=== PATIENT | female | born 1940 | race Caucasian/White ===

== ENCOUNTER 2017-04-27 11:38 | Emergency (ER) | payer MEDICAID, MEDICARE, OTHER ==
[~2017-04-27] VITALS: Ht 154.9 cm; Wt 54.4 kg
[2017-04-27 12:14] VITALS: BP 140/58
--- NOTE | 2017-04-27 12:31 | NUR ---
PATIENT WILL BE PUT IN BED# 7 WHEN AVAILABLE
--- NOTE | 2017-04-27 12:53 | NUR ---
Pt placed in bed 7. Daughter at bedside.
--- NOTE | 2017-04-27 13:03 | NUR ---
77/F bib daughter for evaluation of dizzness since Saturday and a cough since Saturday. Pt denies any syncope or loss of conciousness. AOX4, nigerien speaking. Pt c/o chest tightness with cough only. Pt also c/o shortness of breath. Productive, hacking, moist cough noted. Lungs sounds wheezing/rhonchi all throughout. RR 24, no use of accessory muscles. O2 Sat 94 % on room air. Chest rises and falls symmetrically. Abd soft, non tender, active bowel sounds x 4 quadrants. Denies N/V/D. Denies s/s of UTI. Skin warm and dry, normal in color for ethnicity. Ambulatory with steady gait. VSS at this time. Pt placed in a gown, ekg monitor, pulse oximetry, and blood pressure monitoring. Placed in position of comfort, bed in lowest position.
[2017-04-27] MEDS ORDERED: INSULIN HUMAN REGULAR 100 UNITS/ML 10 ML VIAL IVP ONE ×2 (13:20)
[2017-04-27] MEDS ORDERED: NACL 0.9% 1,000 ML IV SCH (13:27)
[2017-04-27 13:45] LABS: BASOPHILS # (AUTO) 0.2 K/uL (0.00-0.22); BASOPHILS % (AUTO) 1.6 % (0.0-2.0); EOSINOPHILS # (AUTO) 0.1 K/uL (0-0.4); EOSINOPHILS % (AUTO) 0.9 % (0.0-4.0); HEMATOCRIT 37.8 % (36-48); HEMOGLOBIN 12.6 g/dL (12.0-16.0); LYMPHOCYTES # (AUTO) 1.2 K/uL (2.5-16.5); LYMPHOCYTES % (AUTO) 7.7 % (20.5-51.1); MEAN CORPUSCULAR HEMOGLOBIN 30 pg (27-31); MEAN CORPUSCULAR HGB CONC 33 g/dL (33-37); MEAN CORPUSCULAR VOLUME 90 fL (80-94); MONOCYTES # (AUTO) 0.5 K/uL (0.8-1.0); MONOCYTES % (AUTO) 3.4 % (1.7-9.3); NEUTROPHILS # (AUTO) 13.4 K/uL (1.8-7.7); NEUTROPHILS % (AUTO) 86.4 % (42.2-75.2); PLATELET COUNT (AUTO) 128 K/uL (140-450); RED BLOOD CELL COUNT(AUTO) 4.19 MIL/uL (4.20-5.40); RED CELL DISTRIBUTION WIDTH 12.4 % (11.6-13.7); WHITE BLOOD COUNT (AUTO) 15.4 K/uL (4.8-10.8)
[2017-04-27] MEDS ORDERED: methylPREDNISolone SS 125 MG/2 ML VIAL IVP ONE (13:55)
[2017-04-27] MEDS ORDERED: ALBUTEROL 0.083% 2.5 MG/3 ML NEBU INH ONE ×2 (13:55→16:15)
[2017-04-27] MEDS ORDERED: IPRATROPIUM 0.02% 0.5 MG/2.5 ML NEBU INH ONE ×2 (13:55→16:15)
[2017-04-27] MEDS ORDERED: MAG SULF 2000 MG/WATER PREMIX 50 ML IV ONE (13:55)
[2017-04-27 13:57] LABS: CALCIUM 8.2 mg/dL (8.5-10.1); CARBON DIOXIDE 28.6 mmol/L (21-32); CHLORIDE 90 mmol/L (98-107); CREATININE 1.3 mg/dL (0.6-1.3); GLUCOSE 363 mg/dL (74-106); POTASSIUM 3.6 mmol/L (3.5-5.1); SODIUM SERUM 128 mmol/L (136-145); UREA NITROGEN, BLOOD 21 mg/dL (7-18)
--- NOTE | 2017-04-27 13:59 | NUR ---
X-Ray at bedside.
[2017-04-27 14:02] LABS: ALANINE AMINOTRANSFERASE 17 U/L (12-78); ALBUMIN 2.7 g/dL (3.4-5.0); ALKALINE PHOSPHATASE 79 U/L (46-116); AMYLASE 62 U/L (25-115); ASPARTATE AMINOTRANSFERASE 25 U/L (15-37); LIPASE 224 U/L (73-393); TOTAL BILIRUBIN 0.6 mg/dL (0.0-1.0); TOTAL PROTEIN, SERUM 6.8 g/dL (6.4-8.2)
[2017-04-27 14:03] LABS: PARTIAL THROMBOPLASTIN TIME 32.1 secs (22-35.6)
--- NOTE | 2017-04-27 14:04 | NUR ---
RT at bedside to give patient breathing treatment.
--- NOTE | 2017-04-27 15:30 | NUR ---
Food tray provided to patient. Pt is eating well. Family at bedside. All needs addressed.
--- NOTE | 2017-04-27 16:11 | NUR ---
Kuldip ware in ED - 04/27/17 at 1703 by [facility] IV removed, catheter intact and site benign. Applied folded 4x4 gauze and tape to stop bleeding.
[2017-04-27 16:37] LABS: BLOOD GAS BASE EXCESS -1.9 mmol/L (-2.0-2.0); BLOOD GAS HCO3 21.9 mmol/L; BLOOD GAS PCO2 34.4 mmHg (20-50); BLOOD GAS PH 7.422 (7.35-7.45); BLOOD GAS PO2 77.6 mmHg
[2017-04-27] MEDS: NACL 0.9% 1,000 ML IV SCH (16:37)
[2017-04-27 16:38] LABS: BLOOD GAS O2 SAT% 95.2 % (92.0-98.5)
[2017-04-27] MEDS ORDERED: ACETAMINOPHEN 325 MG TAB PO PRN (16:40)
[2017-04-27] MEDS ORDERED: ONDANSETRON 4 MG/2 ML VIAL IVP PRN (16:40)
[2017-04-27] MEDS ORDERED: HYDROcodone/APAP 5/325 MG 1 TAB TAB PO PRN ×2 (16:40)
[2017-04-27] MEDS ORDERED: ALBUTEROL 0.083% 2.5 MG/3 ML NEBU INH PRN (16:40)
[2017-04-27] MEDS ORDERED: LORazepam 2 MG/ML VIAL IVP PRN (16:40)
[2017-04-27] MEDS ORDERED: DEXTROSE 50% 50 ML SYR IVP PRN (16:40)
[2017-04-27] MEDS ORDERED: INSULIN LISPRO SLIDING SCALE 100 UNITS/ML VIAL SUBQ PRN (16:40)
[2017-04-27] MEDS ORDERED: cefTRIAXone 1,000 MG VIAL ONE (16:53)
--- NOTE | 2017-04-27 16:56 | NUR ---
Patient will be admitted to care of Dr. Tyson. Admited to TELE. Will go to room 125-B. Belongings list completed. Report to Elian ROMERO.
--- NOTE | 2017-04-27 17:14 | NUR ---
Pt transferred to [facility] 125-B via [facility] accompanied by EMT Nestor and myself. Daughters followed along. All belongings sent with patient. IVPB infusing during transport.
--- NOTE | 2017-04-27 17:14 | NUR ---
Kuldip ware in [facility] - 04/27/17 at 1727 by [facility] Pt transferred to [facility] via .
[2017-04-27 17:30] VITALS: BP 121/82
--- NOTE | 2017-04-27 17:30 | NUR ---
PT ADMITTED FROM ER WITH DX HYPERGLYCEMIA, HYPONATREMIA, LEUKOCYTOSIS. PATIENT AMBULATORY. AAOX4. [place] SPEAKING. IV LAC #20 PATENT AND INTACT. DENIES CHEST PAIN. ON O2 2L NC, NO S/S OF RESPIRATORY DISTRESS. SKIN INTACT, ABRASION NOTED LLE. NO EDEMA. CALL LIGHT WITHIN REACH. ORIENTED PATIENT TO HOSPITAL ENVIRONMENT. SAFETY MEASURES IN PLACE. WILL CONTINUE TO MONITOR.
[2017-04-27 18:07] LABS: LACTIC ACID 2.3 mmol/L (0.4-2.0)
[2017-04-27 19:13] LABS: APPEARANCE,URINE CLEAR (CLEAR); BILIRUBIN,URINE NEGATIVE (NEGATIVE); BLOOD, URINE TRACE-I (NEGATIVE); COLOR,URINE YELLOW (YELLOW); LEUKOCYTE ESTERASE ,URINE NEGATIVE (NEGATIVE); NITRITE, URINE NEGATIVE (NEGATIVE); PH,URINE 5.5 (5.0-9.0); PROTEIN,URINE TRACE (NEGATIVE); UGLUCOSE 3+ (NEGATIVE); UROBILINOGEN,URINE 0.2 EU/dL (0.2 - 1)
[2017-04-27 19:28] LABS: BACTERIA,URINE 1-9 (FEW) /HPF (None Seen); RBC,URINE 3-10 (FEW) /HPF (0-5); SQUAMOUS EPITHELIAL CELL,UR 4-10 (MOD) /LPF (0-3 (FEW))
--- NOTE | 2017-04-27 19:30 | NUR ---
ENDORSED PLAN OF CARE TO NIGHT NURSE AT PT BEDSIDE. NO S/S OF ACUTE DISTRESS NOTED.
--- NOTE | 2017-04-27 19:35 | NUR ---
RECEIVED PT IN STABLE CONDITION FROM AM NURSE. AWAKE,ALERT AND ORIENTED X4. UPPER SORBIAN SPEAKING. ON TELE MONITOR. AMBULATORY TO BATHROOM WITH ASSISTANCE. DAUGHTER AT BEDSIDE. PLAN OF CARE DISCUSSED AND VERBALIZED UNDERSTANDING. BED ON LOW POSITION . CALL LIGHT PLACED WITHIN EASY REACH. WILL CONTINUE TO MONITOR.
[2017-04-27 20:00] VITALS: BP 132/67
[2017-04-27] MEDS: BLOOD GLUCOSE MONITORING 1 DEV DEV FS SCH ×2 (20:40→21:00)
--- NOTE | 2017-04-27 20:42 | NUR ---
BLOOD SUGAR WAS CHECKED RESULT 557, THEN REPEATED 530. PAGED DR. ALEXIS, DR. CABRAL [employer] DR[employer]. WILL WAIT FOR CALL BACK.
--- NOTE | 2017-04-27 20:45 | NUR ---
LAB CALLED FOR LACTIC ACID 3.4. WILL HAVE DR. CABRAL AWARE WHEN HE CALL BACK .
--- NOTE | 2017-04-27 20:50 | NUR ---
DR. CABRAL CALLED BACK . MADE AWARE OF BLOOD SUGAR 530. WITH ORDER TO GIVE HUMALOG 16 UNITS SUB Q ONCE AND TO RECHECK BS AFTER ONE HOUR. HE WAS ALSO MADE COLLINS ABOUT LACTIC ACID 3.4 . NO NEW ORDER MADE FOR PT ALREADY HAS IVF INFUSING. AND REPEAT OF LACTIC ACID IN AM.
[2017-04-27] MEDS ORDERED: INSULIN LISPRO 100 UNITS/ML VIAL SUBQ SCH (20:55)
--- NOTE | 2017-04-27 22:46 | NUR ---
BLOOD SUGAR WAS RECHECKED RESULT STILL HIGH 512. PAGED AGAIN DR. CABRAL. WILL WAIT FOR CALL BACK.
--- NOTE | 2017-04-27 22:48 | NUR ---
DR. CABRAL CALLED BACK. HE SAID TO RECHECK BS AGAIN AFTER AN HOUR AND CALL HIM.
--- NOTE | 2017-04-27 23:28 | NUR ---
DR. CABRAL CALLED AND WANT BLOOD SUGAR CHECK NOW. RESULT 486. WITH ORDER TO GIVE HUMALOG 18 UNITS SUBQ NOW AND CHECK BS AFTER ONE AND 1/2 HOUR. CALL HIM IF STILL ABOVE 400.
[2017-04-27 23:55] VITALS: BP 144/73
[2017-04-28] MEDS ORDERED: INSULIN LISPRO 100 UNITS/ML VIAL SUBQ SCH (01:00)
--- NOTE | 2017-04-28 01:35 | NUR ---
BLOOD SUGAR WAS CHECKED AT THIS TIME RESULT 397. WILL CONTINUE TO MONITOR.
[2017-04-28 03:57] VITALS: BP 137/58
--- NOTE | 2017-04-28 04:20 | NUR ---
MADE ROUNDS . AWAKE. NO C/O ANY DISCOMFORT NOR PAIN NOTED. WILL CONTINUE TO MONITOR.
[2017-04-28] MEDS: NACL 0.9% 1,000 ML IV SCH (05:57)
[2017-04-28] MEDS: BLOOD GLUCOSE MONITORING 1 DEV DEV FS SCH (06:03)
--- NOTE | 2017-04-28 06:11 | NUR ---
BLOOD SUGAR THIS AM 311. INSULIN COVERAGE HUMALOG 8 UNITS SUBQ GIVEN ON LT ARM. ENCOURAGED TO HAVE SOME JUICE . WILL CONTINUE TO MONITOR.
--- NOTE | 2017-04-28 07:18 | NUR ---
ENDORSED PT IN STABLE CONDITION TO AM NURSE FOR CONTINUITY OF CARE.
[2017-04-28 07:26] LABS: HEMATOCRIT 35.8 % (36-48); HEMOGLOBIN 12.1 g/dL (12.0-16.0); MEAN CORPUSCULAR HEMOGLOBIN 30 pg (27-31); MEAN CORPUSCULAR HGB CONC 34 g/dL (33-37); MEAN CORPUSCULAR VOLUME 90 fL (80-94); PLATELET COUNT (AUTO) 143 K/uL (140-450); RED BLOOD CELL COUNT(AUTO) 3.98 MIL/uL (4.20-5.40); RED CELL DISTRIBUTION WIDTH 11.9 % (11.6-13.7)
--- NOTE | 2017-04-28 07:30 | NUR ---
REPORT RECEIVED FROM DIVIDEND DEPOSIT ENTRY CLERK, PT RESTING WITH EYES CLOSED, AROUSES EASILY BY VOICE, OX4, RESP EVEN UNLABORED, SKIN WARM DRY COLOR WNL, PT DENIES PAIN OR DISCOMFORT, PLAN DISCUSSED, CALL KING WITHIN REACH, SIDE RAILS UP, BED LOCKED IN LOW POSITION, WILL CONTINUE TO MONITOR.
[2017-04-28 07:35] LABS: ALANINE AMINOTRANSFERASE 18 U/L (12-78); ALBUMIN 2.5 g/dL (3.4-5.0); ALKALINE PHOSPHATASE 77 U/L (46-116); ANION GAP 11.7 (8-16); ASPARTATE AMINOTRANSFERASE 19 U/L (15-37); CALCIUM 8.5 mg/dL (8.5-10.1); CARBON DIOXIDE 28.2 mmol/L (21-32); CHLORIDE 103 mmol/L (98-107); CREATININE 0.9 mg/dL (0.6-1.3); GLUCOSE 289 mg/dL (74-106); MAGNESIUM 2.2 mg/dL (1.8-2.4); POTASSIUM 3.9 mmol/L (3.5-5.1); SODIUM SERUM 139 mmol/L (136-145); TOTAL BILIRUBIN 0.4 mg/dL (0.0-1.0); TOTAL PROTEIN, SERUM 6.6 g/dL (6.4-8.2); UREA NITROGEN, BLOOD 18 mg/dL (7-18)
[2017-04-28 07:53] LABS: BAND % (MANUAL) 5 % (0-8); LYMPHOCYTES % (MANUAL) 7 % (20-46); MONOCYTES % (MANUAL) 2 % (5-12); NEUTROPHILS % (MANUAL) 86 (43-65)
[2017-04-28 08:00] VITALS: BP 126/82
[2017-04-28] MEDS ORDERED: GLIMEPIRIDE 2 MG TAB PO SCH (09:27)
--- NOTE | 2017-04-28 11:30 | NUR ---
DC INSTRUCTION GIVEN AND EXPLAINED TO PT AND PT'S DAUGHTER, BOTH VERBALIZED FUL UNDERSTANDING, PT TO CONTINUE TO TAKE ALL HOME MEDS, PT UP OUT OF BED WITHOUT PROBLEM, DC HOME NOW WITH DAUGHTER
[2017-04-28 11:48] VITALS: BP 126/82
[2017-04-28 12:00] VITALS: BP 144/73
--- NOTE | 2017-04-28 12:30 | NUR ---
IV DC'D CATH TIP INTACT, BLEEDING CONTROLLED, PT SHENA WELL, DC HOME NOW WITH DAUGHTER, PT AMBULATING WELL WITHOUT PROBLEM,
[2017-04-29] MEDS ORDERED: GLIMEPIRIDE 2 MG TAB PO SCH (09:00)
== END 2017-04-28 12:30 | disposition home or self-care (01) ==
LOC: MED 11:38 → MMU 16:43
PROVIDERS: ADMIT Hospitalist; ATTEND Hospitalist
DX: E11.65 Type 2 diabetes mellitus with hyperglycemia (principal); E87.1 Hypo-osmolality and hyponatremia; I10 Essential (primary) hypertension; E03.9 Hypothyroidism, unspecified
CPT/HCPCS: 36415; 36600; 71010; 80053; 81001; 82150; 82553; 82803; 82948; 83605; 83690; 83735; 83880; 84484; 85025; 85610; 85730; 87040; 87081; 87086; 93005; 94640; 94760; 96361; 96365; 96366; 96367; 96372; 96375; 99285; G0378; J0696; J1815; J2930; J3475; J7030; J7060; J7613; J7644; Q0092